=== PATIENT | male | born 1995 | race African-American/Black ===

== ENCOUNTER 2021-11-20 17:04 | Emergency (ER) | payer OTHER ==
[~2021-11-20] VITALS: Ht 195.6 cm; Wt 68.0 kg
[~2021-11-20 17:04] MED LIST: IBUPROFEN 800800 M1 PO; PENICILLIN VK250 MG PO; TRAMADOL 50 MG50 MG PO
[2021-11-20 20:00] LABS: URINE BILIRUBIN NEGATIVE (Negative); URINE BLOOD NEGATIVE (Negative); URINE CLARITY CLEAR; URINE COLOR YELLOW; URINE GLUCOSE-RANDOM* NEGATIVE (Negative); URINE KETONES 3+ (Negative); URINE LEUKOCYTES-REFLEX NEGATIVE (Negative); URINE NITRITE-REFLEX NEGATIVE (Negative); URINE PROTEIN (DIPSTICK) NEGATIVE (Negative)
[2021-11-20 20:03] LABS: URINE REDUCING SUBSTANCE NEGATIVE
[2021-11-20] MEDS ORDERED: PHENAZOPYRIDIN200 M2 PO (20:32)
[2021-11-20 20:52] VITALS: BP 130/92
--- NOTE | 2021-11-21 12:37 | EKG ---
[place] [address] [place] [employer] [facility] [place] [address] ELECTROCARDIOGRAM REPORT Name: DEMETRIA PARKER Room #: [facility]P [facility] CAMPUSEverette#: [id number] Admission: 11/20/21 Attend Phys: Discharge: 11/20/21 Date of : [birth year] Report #: [id number] [facility] ED Test Date: 2021-11-20 Test Time: 17:19:36 Pat Name: DEMETRIA PARKER Department: Room: Gender: Business Planning Director: [facility] : 1995 Requested By: Ann-Marie Morgan Order Number: [id number] MD: Jimmy Gutierrez Measurements Intervals [place] Rate: 94 P: 83 VA: 157 QRS: 78 QRSD: 78 T: 52 QT: 336 QTc: 421 Interpretive Statements Sinus rhythm Left atrial enlargement ST elev, probable normal early repol pattern Baseline wander in lead(s) III No previous ECG available for comparison Electronically Signed On 11-21-2021 12:37:07 BIOLOGIST by Jimmy Gutierrez [email or web address] <ELECTRONICALLY SIGNED> By: Jimmy Gutierrez MD, [facility] 11/21/21 1237 1719 1719 Jimmy Gutierrez MD, FACC /EPI
== END 2021-11-20 20:55 | disposition home or self-care (01) ==
LOC: ER 17:04
PROVIDERS: Nurse Practitioner Family
DX: N34.2 Other urethritis (principal); R07.89 Other chest pain; Z79.899 Other long term (current) drug therapy